=== PATIENT | female | born 1995 | race Caucasian/White ===

== ENCOUNTER 2024-10-15 19:30 | Emergency (ER) | payer OTHER ==
[~2024-10-15] VITALS: Ht 180.3 cm; Wt 68.0 kg
[2024-10-15 21:06] LABS: APPEARANCE,URINE SLIGHTLY CLOUDY (CLEAR); BILIRUBIN,URINE NEGATIVE (NEGATIVE); BLOOD, URINE 2+ Ery/uL (NEGATIVE); COLOR,URINE ORANGE (YELLOW); KETONES,URINE NEGATIVE (NEGATIVE); LEUKOCYTE ESTERASE ,URINE 2+ (NEGATIVE); NITRITE, URINE POSITIVE (NEGATIVE); PH,URINE 5.5 (5.0-8.0); PROTEIN,URINE NEGATIVE (NEGATIVE); UGLUCOSE TRACE mg/dL (NEGATIVE)
[2024-10-15 21:15] LABS: ADD URINE CULTURE YES; BACTERIA,URINE Few /HPF (None Seen)
[2024-10-15] MEDS ORDERED: SULFAMETH/TRIMETH 800/160 MG 1 UDTAB TABLET ONE (21:29)
[2024-10-15] MEDS ORDERED: MUPI15CR TP (21:31)
[2024-10-15] MEDS ORDERED: SULF1TAB48 PO (21:31)
[2024-10-15] MEDS: SULFAMETH/TRIMETH 800/160 MG 1 UDTAB TABLET PO ONE (21:34)
[2024-10-15 21:37] VITALS: BP 117/85; TEMP 98.5; O2SAT 99
== END 2024-10-15 21:37 | disposition home or self-care (01) ==
LOC: ER 19:32
DX: N39.0 Urinary tract infection, site not specified (principal); L01.00 Impetigo, unspecified; Z87.440 Personal history of urinary (tract) infections; Z60.2 Problems related to living alone
CPT/HCPCS: 81001; 87086-TC